=== PATIENT | female | born 1980 | race Caucasian/White ===

== ENCOUNTER 2016-09-01 09:24 | Emergency (ER) | payer SELFPAY ==
[2016-09-01 09:33] VITALS: BP 104/70; PULSE 81; RESP 17; TEMP 98.1; O2SAT 100
--- NOTE | 2016-09-01 09:56 | EDPHY ---
H & P Time Seen by Provider: 09/01/16 09:44 HPI/ROS: CHIEF COMPLAINT: Itching painful rash to face HISTORY OF PRESENT ILLNESS: 36-year-old immunocompetent female with history of cutaneous MRSA complaining of 1 week of itching rash which is now tender. Prior history of similar. The rash is not unilateral. No headache. No sore throat. No nuchal rigidity. No visual disturbance. PHYSICAL EXAM (Prior to examination, patient consented to physical exam, hands were washed and my usual and customary physical exam procedures followed) 1) GENERAL: Well-developed, well-nourished, alert and oriented. Appears to be in no acute distress. 2) HEAD: Normocephalic 3) HEENT: sclera anicteric 4) LUNGS: Breathing comfortably. 5) SKIN: not following a dermatomal distribution and bilaterally on her face she has discrete erythematous tender lesions . There nonvesicular. Some are excoriated DIFFERENTIAL DIAGNOSIS: in no particular include but limited to cellulitis, Aricept lips, impetigo Smoking Status: Never smoked Constitutional: Initial Vital Signs Temperature (C) 36.7 C 09/01/16 09:30 Heart Rate 81 09/01/16 09:30 Respiratory Rate 17 09/01/16 09:30 Blood Pressure 104/70 09/01/16 09:30 O2 Sat (%) 100 09/01/16 09:30 O2 Delivery Mode Room Air Allergies/Adverse Reactions: sulfamethoxazole [From Bactrim] Allergy (Verified 09/01/16 09:30) trimethoprim [From Bactrim] Allergy (Verified 09/01/16 09:30) Home Medications: Medication Instructions Recorded Doxycycline Hyclate 100 mg PO BID #14 capsule 09/01/16 MDM/Departure - [facility] ED Course/Re-evaluation: Patient has a history of sulfa allergy and a history of cutaneous MRSA. She notes prior history of doxycycline treatment with success. Was started on doxycycline. My usual customary doxycycline precautions instructions provided the patient. She has also been given primary care referral information she does not have primary care provider. I do not think that facial imaging indicated I doubt deep space infection. She feels comfortable being discharged. - Depart Disposition: Home, Routine, Self-Care Clinical Impression: Cellulitis of face Condition: Good Instructions: Cellulitis (ED) Additional Instructions: Return to the ER if you develop new or worsening symptoms Prescriptions: Doxycycline Hyclate 100 mg PO BID #14 capsule Referrals: [facility],. [Clinic] - 2-3 days, call for appt.
== END 2016-09-01 10:08 | disposition home or self-care (01) ==
DX: L03.211 Cellulitis of face (principal)